=== PATIENT | male | born 1930 | race Caucasian/White ===

== ENCOUNTER → 2017-04-07 21:28 | Outpatient (CLI) | payer OTHER ==
[2011-08-23 15:51] VITALS: BMI 30.2
[2017-04-08 01:21] LABS: CALC OSMOLALITY 287 mosm/kg (275-300); CALCIUM 8.7 mg/dL (8.5-10.1); CARBON DIOXIDE 31.7 mmol/L (21.0-32.0); CHLORIDE - SERUM 105 mmol/L (98-107); GLUCOSE 95 mg/dL (74-106); POTASSIUM - SERUM 4.2 mmol/L (3.5-5.1); SODIUM 144 mmol/L (136-145); UREA NITROGEN 14 mg/dL (7-18); eGFR NON AFRICAN AMERICAN 75 mL/min (90-120)
== END | disposition home or self-care (01) ==
LOC: D.LABREF 21:28
PROVIDERS: Family Medicine
DX: J18.9 Pneumonia, unspecified organism (principal)

== ENCOUNTER → 2017-05-06 08:42 | Outpatient (CLI) | payer OTHER ==
[2011-08-23 15:51] VITALS: BMI 30.2
[2017-05-07 08:21] LABS: IMMUNOGLOBULIN A 63 mg/dL (61-437); IMMUNOGLOBULIN G 847 mg/dL (700-1600)
[2017-05-07 09:16] LABS: IMMUNOGLOBULIN E 8 IU/mL (0-100)
[2017-05-07 14:22] LABS: ANA REFLEX - ANTICHROMATIN ABS <0.2 AI (0.0-0.9); ANA REFLEX - CENTROMERE B ABS <0.2 AI (0.0-0.9); ANA REFLEX - DBL STRANDED DNA <1 IU/mL (0-9); ANA REFLEX - DIRECT Positive (Negative); ANA REFLEX - JO-1 AB <0.2 AI (0.0-0.9); ANA REFLEX - RNP ANTIBODIES 0.5 AI (0.0-0.9); ANA REFLEX - SCL-70 <0.2 AI (0.0-0.9); ANA REFLEX - SJOGRENS AB SSA 2.1 AI (0.0-0.9); ANA REFLEX - SJOGRENS AB SSB <0.2 AI (0.0-0.9); ANA REFLEX - SMITH AB <0.2 AI (0.0-0.9)
== END | disposition home or self-care (01) ==
LOC: D.RT 08:42
PROVIDERS: Internal Medicine Pulmonary Disease
DX: J44.9 Chronic obstructive pulmonary disease, unspecified (principal)